=== PATIENT | female | born 2005 | race African-American/Black ===

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

== ENCOUNTER 2024-05-14 13:20 | Emergency (ER) | payer OTHER, SELFPAY ==
[2024-05-14 13:22] VITALS: PULSE 85; RESP 16; TEMP 36.7; O2SAT 99
--- NOTE | 2024-05-14 13:27 | ED_ITS ---
HPI - Skin/Abscess/Foreign Bdy General Chief complaint: Skin/Abscess/Foreign Body Stated complaint: stiches need to be taken out of L foot Time Seen by Provider: 05/14/24 13:22 Source: patient Mode of arrival: ambulatory Limitations: no limitations History of Present Illness HPI narrative: patient is a 18-year-old male who presented to the ED needing suture removal. Patient reports he stepped on glass around 13 days ago and sustained a laceration to his left foot plantar surface around his 1st toe. He had sutures placed an outside hospital. He presents today needed his sutures removed. Denies any issues with the wound. Denies any fevers, pain, numbness. Related Data Allergies Allergy/AdvReac Type Severity Reaction Status Date / Time No Known Allergies Allergy Verified 05/14/24 13:20 Review of Systems Review of Systems: All systems reviewed & are unremarkable except as noted in HPI. All systems reviewed & are unremarkable except as noted in HPI and below Exam Narrative: GENERAL: Well appearing, well-nourished, non-toxic, in no acute distress. HEAD: Normocephalic, atraumatic. RESPIRATORY: Airway patent, respirations nonlabored. CARDIOVASCULAR: Regular rate and rhythm MUSCULOSKELETAL: Moves all extremities. No gross deformities. SKIN: Warm, dry, normal color. Large curvilinear laceration to plantar surface of L foot plantar surface beneath 1st toe extending towards medial surface of toe MCP joint. Well approximated. [address] No evidence of dehiscence. No surrounding erythema, drainage, bleeding. No significant tenderness. NEURO: A&O X3. Speech clear. PSYCHIATRIC: Appropriate mood and affect. Normal interaction. Course Vital Signs Vital signs: Vital Signs Temperature 98.0 F 05/14/24 13:22 Pulse Rate 85 05/14/24 13:22 Respiratory Rate 16 05/14/24 13:22 Pulse Oximetry 99 05/14/24 13:22 Oxygen Delivery Room Air 05/14/24 13:22 Temperature 98.0 F 05/14/24 13:22 Pulse Rate 85 05/14/24 13:22 Respiratory Rate 16 05/14/24 13:22 Pulse Oximetry 99 05/14/24 13:22 Oxygen Delivery Room Air 05/14/24 13:22 MDM - Skin/Abscess/Foreign Bdy MDM Narrative Medical decision making narrative: Laceration healing well. No signs of infection. Sutures were removed by myself. Patient given further wound care instructions, reasons to return. Medical Records Attestation: I reviewed the patient's medical records. Discharge Plan Discharge Clinical Impression: Encounter for removal of sutures Patient Disposition: Home, Self-Care Condition: Stable Instructions: Antibiotic Form, Stitches Removal (ED) Additional Instructions: Continue to monitor wound over next several days. Recommend keeping wound bandaged until fully healed. Utilize antibiotic ointment to wound. Return to the ED if you experience recurrent injury, severe pain, recurrent bleeding, pus- like drainage from the wound, redness surrounding the wound nurse streaking up or down foot, or any other symptoms of concern. Follow-up/Referrals: UNKNOWN,DOCTOR [Primary Care Provider] - Time of Disposition: 13:28
== END 2024-05-14 13:40 | disposition home or self-care (01) ==
PROVIDERS: Emergency Provider Physician Assistant
DX: S91.312D Laceration without foreign body, left foot, subsequent encounter (principal); W25.XXXD Contact with sharp glass, subsequent encounter
CPT/HCPCS: 15853; 99281